=== PATIENT | female | born 1990 | race Asian ===

== ENCOUNTER 2017-07-16 09:38 | Inpatient (IN) | payer SELFPAY ==
[2017-07-14 12:22] LABS: BASOPHILS # (AUTO) 0.1 K/uL (0.0-0.2); BASOPHILS % (AUTO) 0.7 % (0.0-2.0); BILIRUBIN,URINE NEGATIVE (NEGATIVE); BLOOD, URINE NEGATIVE (NEGATIVE); CLARITY/URINE CLEAR (CLEAR); COLOR,URINE YELLOW (YELLOW); EOSINOPHILS # (AUTO) 0.2 K/uL (0.0-0.4); GLUCOSE,URINE NEGATIVE (NEGATIVE); HEMATOCRIT 39.3 % (36-48); HEMOGLOBIN 13.6 g/dL (12.0-16.0); KETONES,URINE NEGATIVE (NEGATIVE); LEUKOCYTE ESTERASE ,URINE 2+ (NEGATIVE); LYMPHOCYTES # (AUTO) 1.7 K/uL (1.0-5.5); LYMPHOCYTES % (AUTO) 22.8 % (20.5-51.5); MEAN CORPUSCULAR HEMOGLOBIN 30 pg (27-31); MEAN CORPUSCULAR HGB CONC 35 % (32-36); MEAN CORPUSCULAR VOLUME 87 fL (79.0-98.0); MONOCYTES # (AUTO) 0.6 K/uL (0.0-1.0); MONOCYTES % (AUTO) 7.5 % (1.7-9.3); NEUTROPHILS # (AUTO) 4.9 K/uL (1.8-7.7); NITRITE, URINE NEGATIVE (NEGATIVE); PLATELET COUNT (AUTO) 214 K/uL (130-430); PROTEIN URINE NEGATIVE (NEGATIVE); RED BLOOD CELL COUNT(AUTO) 4.55 MIL/uL (4.2-6.2); RED CELL DISTRIBUTION WIDTH 17.9 % (9.0-15.0); UROBILINOGEN,URINE 0.2 (0.2-1.0); WHITE BLOOD COUNT (AUTO) 7.5 K/uL (4.8-10.8)
[2017-07-14 12:28] LABS: BACTERIA,URINE FEW /HPF (None Seen); RBC,URINE 0-3 /HPF (0-3)
[~2017-07-16] VITALS: Ht 171 cm; Wt 80.0 kg
[2017-07-16] MEDS ORDERED: LR 1,000 ML IV ONE (11:34)
[2017-07-16] MEDS ORDERED: CITRIC ACID/SODIUM CITRATE 30 ML UDC PO ONE (11:45)
[2017-07-16] MEDS ORDERED: CEFAZOLIN 2 GM IVPB PREMIX 50 ML IV ONE (11:45)
[2017-07-16] MEDS ORDERED: ePHEDrine sulfate 50 MG/ML VIAL IV ONE (12:50)
[2017-07-16] MEDS ORDERED: DEXAMETHASONE SOD PHOSPHATE 4 MG/ML VIAL IVP ONE (12:50)
[2017-07-16] MEDS ORDERED: PROPOFOL 200MG/ 20ML VIAL (DIPRIVAN) IV ONE (12:50)
[2017-07-16] MEDS ORDERED: ROCURONIUM BROMIDE 10 MG/ML (ZEMURON) IV ONE (12:50)
[2017-07-16] MEDS ORDERED: fentaNYL CITRATE 250 MCG/5 ML AMP IV ONE (12:50)
[2017-07-16] MEDS ORDERED: ONDANSETRON HCL 4 MG/2 ML VIAL IVP ONE (12:50)
[2017-07-16] MEDS ORDERED: SEVOFLURANE 15 MIN GAS INH ONE (12:50)
[2017-07-16] MEDS ORDERED: MORPHINE SULFATE 10MG/10ML PF AMP EP ONE (12:50)
[2017-07-16] MEDS ORDERED: NS IRRIG SOLN 1000 ML IR ONE (12:50)
[2017-07-16] MEDS ORDERED: ATRACURIUM BESYLATE 100 MG/10 ML VIAL (ATRACURIUM) IV ONE (12:50)
[2017-07-16] MEDS ORDERED: LR 1,000 ML IV.SOLN IV ONE (12:50)
[2017-07-16] MEDS ORDERED: METHYLERGONOVINE MALEATE 0.2 MG/ML AMP IM ONE (12:50)
[2017-07-16] MEDS ORDERED: SUCCINYLCHOLINE CHLORIDE 20 MG/ML(QUELICIN) IVP ONE (12:50)
[2017-07-16] MEDS ORDERED: LR 1,000 ML IV SCH ×2 (13:17→14:33)
[2017-07-16] MEDS ORDERED: OXYTOCIN/NORMAL SALINE 1,000 ML IV ONE (13:17)
[2017-07-16] MEDS ORDERED: HYDROcodone/ACETAMIN 5-325 MG TAB (NORCO/ VICODIN) PO PRN (13:30)
[2017-07-16] MEDS ORDERED: LANOLIN 7 GM OINT. TP PRN (13:30)
[2017-07-16] MEDS ORDERED: TEMAZEPAM 15 MG CAPSULE PO PRN (13:30)
[2017-07-16] MEDS ORDERED: ANUSOL 1 EA SUPP.RECT (PREPARATION H) RC PRN (13:30)
[2017-07-16] MEDS ORDERED: RHO(D) IMMUNE GLOBULIN/MALTOSE 1500 UNITS/1.3 ML (WINHRO) IM PRN (13:30)
[2017-07-16] MEDS ORDERED: MEASLES,MUMPS&RUBELLA VACC/PF 12500 UNIT/0.5 ML VIAL SUBQ PRN (13:30)
[2017-07-16] MEDS ORDERED: BISACODYL 10 MG/SUPPOSITORY RC PRN (13:30)
[2017-07-16] MEDS ORDERED: ACETAMINOPHEN 325 MG TABLET PO PRN (13:30)
[2017-07-16 14:15] VITALS: BP_SYST 132
[2017-07-16] MEDS ORDERED: NALOXONE HCL 1 MG in NACL 0.9% 1,000 ML IV PRN ×4 (14:33)
[2017-07-16] MEDS ORDERED: ONDANSETRON HCL 4 MG/2 ML VIAL IVP PRN (14:45)
[2017-07-16] MEDS ORDERED: DIPHENHYDRAMINE HCL 50 MG CAPSULE PO PRN (14:45)
[2017-07-16] MEDS ORDERED: HYDROmorphone 2 MG/ML VIAL IVP PRN ×2 (14:45)
[2017-07-16] MEDS ORDERED: NALOXONE HCL 0.4 MG/ML AMP (NARCAN) IVP PRN ×3 (14:45)
[2017-07-16] MEDS ORDERED: MEPERIDINE HCL/PF 25 MG/ML DISP.SYRIN IVP PRN ×2 (14:45)
[2017-07-16] MEDS ORDERED: DIPHENHYDRAMINE INJ 50 MG/ML VIAL IVP PRN (14:45)
[2017-07-16] MEDS ORDERED: HYDROmorphone 1 MG INJ. 1 MG/ML AMPUL IVP PRN (14:45)
[2017-07-16] MEDS ORDERED: DIPHENHYDRAMINE INJ 50 MG/ML VIAL ONE (14:47)
[2017-07-17] MEDS: IBUPROFEN 600 MG TABLET PO SCH ×5 (06:00→23:30)
[2017-07-17] MEDS: DOCUSATE SODIUM 100 MG CAPSULE PO PRN ×2 (06:37→12:10)
[2017-07-17] MEDS: SIMETHICONE 80 MG TAB.CHEW PO PRN ×3 (06:37→16:22)
[2017-07-17] MEDS: SENNOSIDES/DOCUSATE SODIUM 1 TAB TABLET(SENOKOT-S) PO PRN ×2 (06:38→12:10)
[2017-07-17 06:46] LABS: BASOPHILS % (AUTO) 0.2 % (0.0-2.0); EOSINOPHILS % (AUTO) 0.2 % (0.0-4.0); HEMOGLOBIN 11.5 g/dL (12.0-16.0); LYMPHOCYTES # (AUTO) 2.2 K/uL (1.0-5.5); LYMPHOCYTES % (AUTO) 20.5 % (20.5-51.5); MEAN CORPUSCULAR HEMOGLOBIN 30 pg (27-31); MEAN CORPUSCULAR HGB CONC 34 % (32-36); MEAN CORPUSCULAR VOLUME 88 fL (79.0-98.0); MONOCYTES # (AUTO) 0.8 K/uL (0.0-1.0); MONOCYTES % (AUTO) 7.1 % (1.7-9.3); NEUTROPHILS # (AUTO) 7.7 K/uL (1.8-7.7); PLATELET COUNT (AUTO) 172 K/uL (130-430); RED BLOOD CELL COUNT(AUTO) 3.85 MIL/uL (4.2-6.2); RED CELL DISTRIBUTION WIDTH 18.2 % (9.0-15.0); WHITE BLOOD COUNT (AUTO) 10.7 K/uL (4.8-10.8)
[2017-07-17] MEDS: HYDROcodone/ACETAMIN 5-325 MG TAB (NORCO/ VICODIN) PO PRN ×2 (16:21→23:13)
[2017-07-18] MEDS ORDERED: IBUPROFEN 600 MG TABLET ONE (05:26)
[2017-07-18] MEDS: IBUPROFEN 600 MG TABLET PO SCH ×3 (06:00→17:32)
[2017-07-18] MEDS: HYDROcodone/ACETAMIN 5-325 MG TAB (NORCO/ VICODIN) PO PRN (06:04)
[2017-07-18] MEDS: DOCUSATE SODIUM 100 MG CAPSULE PO PRN (06:04)
[2017-07-18] MEDS: SIMETHICONE 80 MG TAB.CHEW PO PRN (06:05)
[2017-07-18] MEDS ORDERED: OXYCODONE/ACETAMINOPHEN 5-325 TABLET PO PRN (08:15)
[2017-07-18] MEDS ORDERED: OXYCODONE/ACETAMINOPHEN 5-325 TABLET ONE (08:25)
[2017-07-18] MEDS: OXYCODONE/ACETAMINOPHEN 5-325 TABLET PO PRN ×2 (08:51→14:47)
[2017-07-19] MEDS: OXYCODONE/ACETAMINOPHEN 5-325 TABLET PO PRN (00:04)
[2017-07-19] MEDS: IBUPROFEN 600 MG TABLET PO SCH ×3 (06:00→12:00)
[2017-07-19] MEDS ORDERED: FLU VACC QS 2017-18(36MOS+)/PF 0.5 ML/SYR SYRINGE I.M. PRN (08:45)
[2017-07-19] MEDS ORDERED: FLU VACC QS 2017-18(36MOS+)/PF 0.5 ML/SYR SYRINGE I.M. ONE (09:07)
[2017-07-19] MEDS ORDERED: DIPH-TET-PERTUS Vaccine 0.5 ML VIAL (ADACEL) I.M. ONE (09:45)
== END 2017-07-19 15:11 | disposition home or self-care (01) | DRG 766 ==
LOC: SPU 09:38
PROVIDERS: ADMIT Obstetrics & Gynecology; ATTEND Obstetrics & Gynecology
PROC: 10D00Z1 Extraction of Products of Conception, Low, Open Approach (ICD-10-PCS; principal; 2017-07-16 12:30)
DX: O30.003 Twin pregnancy, unspecified number of placenta and unspecified number of amniotic sacs, third trimester (principal); Z37.2 Twins, both liveborn; Z3A.38 38 weeks gestation of pregnancy
CPT/HCPCS: 36415; 81000-TC; 85025; 86592; 86886; 86900; 86901; 94760; J0330; J0690; J0696; J1100; J1200; J2210; J2274; J2310; J2405; J2704; J3010; J7030; J7060; J7120; Q2037